=== PATIENT | female | born 1985 | race Caucasian/White ===

== ENCOUNTER 2018-11-01 10:29 | Outpatient (REF) | payer OTHER, SELFPAY ==
--- NOTE | 2018-11-01 09:30 | PAPFT_PTH ---
PATIENT: GRAHAM PASTOR LOC: [facility]NALI U#:[id number] AGE/SX: 33/F ROOM: RE11/01/[address]: Kimberley Torrez MD : [id number] BED: DIS: 11/01/2018 SPEC #: [id number] RECD: 11/01/18 13:11 STATUS: GISELE RELorraine #: [id number] SHA: 11/01/18 09:[address]: Kimberley Torrez DEPT: [facility] Cytology RECD BY: Michelle Medina ENTERED: 11/01/18 13:11 SP TYPE: PAPFT OTHR DR: Oleg Hoyos Tissues: 1 - CX/ENDOCX FOR PAP SMEARS Procedures: PAP THIN PREP/UVM Screening HPV DNA PROBE Comments: [id number]
== END 2018-11-01 10:49 ==
LOC: LBN 10:29
PROVIDERS: PCP Physician Assistant Medical; Visit Provider Obstetrics & Gynecology
DX: Z12.4 Encounter for screening for malignant neoplasm of cervix (principal); Z11.51 Encounter for screening for human papillomavirus (HPV)
CPT/HCPCS: 88142; 87624

== ENCOUNTER 2018-11-15 10:58 | Outpatient (CLI) | payer OTHER, SELFPAY ==
[2018-11-15 13:32] LABS: HCT 41.9 % (36.0-46.0); HGB 13.8 g/dL (12.0-15.5)
[2018-11-15 14:18] LABS: HCG Qual (Serum) Negative
== END 2018-11-15 11:18 ==
PROVIDERS: PCP Physician Assistant Medical; Visit Provider Obstetrics & Gynecology
DX: R10.2 Pelvic and perineal pain (principal); N80.0 Endometriosis of uterus; Z01.818 Encounter for other preprocedural examination
CPT/HCPCS: 86850; 86900; 86901; 84703; 85014; 85018

== ENCOUNTER 2018-11-20 14:09 | Observation (INO) | payer OTHER, SELFPAY ==
[2018-11-20] VITALS (17 sets, daily range): BP systolic 90–131; BP diastolic 54–84; PULSE 55–99; RESP 13–18; TEMP 36.2–37; O2SAT 95–100
[2018-11-20] MEDS: Lactated Ringers 1,000 ML 125 ML IV ×3 (09:56→16:24)
--- NOTE | 2018-11-20 10:04 | DSU.FORM ---
11/20/2018 0932 - PT BECAME SYNCOPAL AND PASSED OUT UPON THE INJECTION OF 1% LIDO USED TO START IV. IV START WAS HALTED, PT RECLINED, SURAJ FROM LAB PRESENT IN ROOM. HELP CALLED FOR, MARY CARMEN MCCABE RN, ANITRA KAPLAN CRNA, AND LUIS GRIDER RN IN ROOM. IV STARTED, #20 LEFT HAND, BY MARY CARMEN MCCABE RN. PT QUICKLY BECAME RESPONSIVE BUT DISORIENTED. PT REMAINED RECLINED COOL CLOTHS APPLIED, COOL AIR FROM BEAR HUGGER USED. VSS 130/75, 90, 100%RA, 20 RESPIRATIONS. AFTER ABOUT 2 MINUTES TIME, PT DID GAIN FULL CONSCIOUSNESS AND WAS ORIENTED, BUT CONTINUED TO FEEL FLUSH AND FAINT. 0936- PT CONTINUED TO BE RECLINED BUT BECAME NAUSEATED. 0939- PT VOMITED X 2 - CLEAR LIQUID APPROX 25MLS, PT PLACED IN SEATED POSITION IN THE RECLINER FOR SAFETY. VSS- 107/72, 96%RA, 93 PULSE, 20 RESP. 0949 - PT NAUSEA PASSING, PT REMAINS RECLINED WITH COOLING IN PLACE, STATES SHE STILL FEELS LIGHTHEADED , VIDHYA PRESENT IN ROOM AT THE REQUEST OF THE PT. 0955- ISABELLA VAIL INTO CHAT WITH PT. PLAN PER ANES, GIVE LITER OF FLUID THAT IS HAS BEEN STARTED, AND PRIOR TO SURGERY, GET PT UP TO GO TO BR, IF VSS LOOK GOOD AND PT FEELS OKAY, WILL PROCEED. 1007 - PT FEELING BETTER, STILL IN RECLINED POSITION WITH AT BEDSIDE. VSS 104/66, 85, 99% RA, 20 RESPS. WILL CONTINUE TO MONITOR.
[2018-11-20] MEDS: Bupivacaine 0.25% Pres-Free 30 ML VIAL (12:53)
--- NOTE | 2018-11-20 13:20 | LIV_PTH ---
PATIENT: GRAHAM PASTOR LOC: OBS U#:[id number] AGE/SX: 33/F ROOM: OBS.304 RE11/20/[address]: Kimberley Torrez MD : 1985 BED: A DIS: 11/21/2018 SPEC #: [id number] RECD: 11/20/18 18:06 STATUS: GISELE RELorraine #: [id number] SHA: 11/20/18 13:[address]: Kimberley Torrez DEPT: Surgical Specimen RECD BY: Michelle Medina ENTERED: 11/20/18 18:06 SP TYPE: ROSIE MÁRQUEZ DR: Oleg Hoyos Tissues: 1 - LIVER BIOPSY(NEEDLE/WEDGE) Procedures: GROSS AND MICRO LEVEL 5 Comments: [id number]
[2018-11-20] MEDS: Cellulose,Oxidized 4X8 1 PACKET MC (13:37)
[2018-11-20] MEDS: Normal Saline Flush 10 ML SYR IV ×4 (15:41→23:53)
--- NOTE | 2018-11-20 16:27 | W.PM.OP ---
Date of service: 11/20/18 Time of Service: 16:28 Operative Note DATE OF PROCEDURE: 11/20/18 PRE-OP DIAGNOSIS: Abnormal liver lesion POST-OP DIAGNOSIS: same PROCEDURE: Laparoscopic liver biopsy SURGEON: Fatoumata Chi ANESTHESIA: GETA ESTIMATED BLOOD LOSS: 5 PATHOLOGY: other TOURNIQUET TIME: 0 COMPLICATIONS: None Patient was transported to: PACU Patient's condition: stable Implants: n/a Indications: abnl lesion on liver segment IV Findings: awaiting path. GB/stomach/sm bowel appears nl. pancrease and CBD not visualized Procedure Description: dictated
[2018-11-20] MEDS: Acetaminophen 500 MG TAB PO (16:37)
--- NOTE | 2018-11-20 16:41 | W.SURGCON ---
Date of service: 11/20/18 Time of Service: 16:41 Assessment and Plan (1) Liver lesion, right lobe: Current visit: No Status: Chronic I d/w pt adn that she has had a liver Bx adn why that had taken place. I do think this is a benign lesion, but will await the reults of pathology. review postOp cares Pt is experiencing some pain in RUQ- I think this is more from residual pneumo and encouraged her to get up and walk, use ice, adjusted pain meds. Pt did have a vaso-vagal episode around 9pm while going to the bathroom. Her VS were stable. She does not exhibited any signs of bleeding. I think it is just a combination of meds and postOp status and does not represent internal bleeding. History of Present Illness Chief Complaint: abnl liver lesion Narrative: PT having diagnostic laparoscopy for chronic pelvic pain. Pt was found to have an abnl liver lesion that did not appear to be benign. IntraOp Bx was done. After reviewing her chart, I did find an old CT from 2014- I think this was the same lesion that we were looking at in Sx today. this does appear to be unchanged from the radiologists description and is mostly likely benign. Will hold off on any further lab work CT ABDOMEN AND PELVIS: No specific history is given. Images were performed from the lung bases through the ischial tuberosities after IV and oral contrast. The lung bases are clear. The liver shows a small area of decreased attenuation anteriorly near the falciform ligament as well as adjacent to the gallbladder which could represent focal fatty infiltration. The spleen, adrenals, pancreas and gallbladder appear normal. The kidneys also appear normal. There is no bowel dilatation or inflammatory change. The administered oral contrast is only seen in the distal small bowel and ascending colon. The appendix appears normal. There is a normal quantity of fecal material. The bladder, uterus and ovaries are unremarkable. There is no free air or free fluid. The aorta is normal in diameter. The spine is unremarkable. IMPRESSION: Areas of focal fat in the anterior liver, of doubtful clinical significance. No acute abnormality is seen. CC: Dictated By: FORREST TOLEDO M.D. 05/25/15 1100 <Electronically signed by FORREST TOLEDO M.D.> 05/25/15 1328 Transcribed By: Danelle Jang 05/25/15 1226 Consults Consult date: 11/20/18 Requesting physician: Kimberley Torrez Review of Systems Review of Systems I did see the pt post Op adn review her s/s. She has not had any problems w/ liver- per her descriptions. Her father just of cancer and his brother was recently Dg w/ cancer- type unspecified. 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 Unobtainable due to endotracheal tube and Unobtainable due to (pt seen intraOP ) [facility] Medical History Liver lesion, right lobe (Chronic) Surgical History Diagnostic Laproscopy (~2002) Ligation of fallopian tube (~2007) Family History Mother Diabetes Personal history of malignant neoplasm aunt Heart disease uncle Heart disease Social History Smoking/Tobacco Use Status: Former Tobacco Use Tobacco: How many years used: 20 Drug use: Never Counseling given: No Counseling provided: none Household members: spouse and other Details: H-Waylon Female Reproductive History Menstrual Age of Menarche: 11 control method: permanent sterilization (Pt also take bith control pills) History History 3 Para 2 Hx # Term Pregnancies Multiple births Hx # Pregnancies Ectopic pregnancies AB induced Hx Number of Living Children AB spontaneous 1 Exam Narrative Exam Narrative: pt seen intraOp. 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
[2018-11-20] MEDS: Ketorolac 30 MG/ML VIAL IVP ×2 (18:14→23:53)
[2018-11-20 19:02] LABS: HCT 38.5 % (36.0-46.0); HGB 12.7 g/dL (12.0-15.5); Mean Corpuscular Hemoglobin 28.7 pg (27.0-33.0); Mean Corpuscular Volume 87.1 fL (80-95); Mean Platelet Volume 11.2 fL (8.0-11.0); Platelet Count 177 x1000/uL (130-400); RBC 4.42 m/cumm (4.00-5.20); RBC Distribution Width 12.6 % (11.7-14.6); White Blood Cell Count 8.13 k/cumm (4.4-10.8)
[2018-11-20] MEDS: CLINDAMYCIN 600 MG/50 ML BAG 100 MG IVPB (20:34)
[2018-11-20] MEDS: traMADol 50 MG TAB PO (20:41)
[2018-11-20] MEDS: Ondansetron 4 MG/2 ML VIAL IVP ×2 (20:54→23:58)
--- NOTE | 2018-11-20 22:27 | W.PM.PROGNOT ---
Date of Service Date of service: 11/20/18 Time of Service: 17:00 Assessment and Plan (1) Liver lesion, right lobe: Current visit: Yes Status: Acute Pt was found to abnl liver lesion in segment IV during Dg laparoscopy for chronic pelvic pain. Bx were done. I did d/w pt and SO findings at the time of surgery. I did find a CT that she had had in 2015- which does show that the lesion was present in 2015, roughly same size and same area. I think this is the lesion- which point to a benign lesion. awaiting bx results. Continue psotOp care walk local wound care pulm toilet will follow Subjective Patient reports: still having pain, nausea and vomiting Interval history since last seen: pt doing ok post OP. c/o pain under R ribs. SShe feels gasey adn bloated. no fever and Chills. VSS are stable. pain is localized to RUQ. Exam Narrative Exam Narrative: HEENT: no eye pain or redness mild sore throat no dental damage cardio: NSR L: CTA b/l A: incision C/D/I. appropriate pain Objective Objective Clinical Data: Abnormal lab results 11/20/18 Range/Units 18:50 MPV 11.2 H (8.0-11.0) fL Vital Signs Temperature 36.8 C 11/20/18 21:47 Temperature Source Oral 11/20/18 21:47 Pulse 84 11/20/18 21:47 Pulse Rhythm Regular 11/20/18 15:35 Respiratory Rate 16 11/20/18 21:47 Respiratory Effort 11/20/18 15:35 Respiratory Depth Normal 11/20/18 15:35 Respiratory Pattern Normal 11/20/18 15:35 Blood Pressure 122/73 11/20/18 21:47 Pulse Oximetry 98 11/20/18 21:47 Respiratory End-tidal CO2 38 11/20/18 14:44 Oxygen Delivery Method Room Air 11/20/18 21:47 Oxygen Flow Rate 0 11/20/18 21:47 Pain Level 6 11/20/18 21:47 Comment 11/20/18 15:30 Intake & Output 11/19/18 11/20/18 11/20/18 23:59 11:59 23:59 Intake Total 1000 / 2125.417 1125.417 / 2125.417 Output Total 875 / 875 Balance 1000 / 1250.417 250.417 / 1250.417 Weight 60.1 kg Intake: IV 1000 / 5.417 885.417 / 1885.417 Oral 240 / 240 Output: Urine 675 / 675 Emesis 200 / 200 Other: Urine Color Yellow Urine Appearance Clear Emesis Description None Voiding Methods Toilet Laboratory Results WBC 8.13 k/cumm (4.4-10.8) 11/20/18 18:50 RBC 4.42 m/cumm (4.00-5.20) 11/20/18 18:50 Hgb 12.7 g/dL (12.0-15.5) 11/20/18 18:50 Hct 38.5 % (36.0-46.0) 11/20/18 18:50 MCV 87.1 fL (80-95) 11/20/18 18:50 MCH 28.7 pg (27.0-33.0) 11/20/18 18:50 MCHC 33.0 g/dL (32.0-36.0) 11/20/18 18:50 RDW 12.6 % (11.7-14.6) 11/20/18 18:50 Plt Count 177 x1000/uL (130-400) 11/20/18 18:50 MPV 11.2 fL (8.0-11.0) H 11/20/18 18:50 Patient ABO/Rh O Positive 11/20/18 09:34 Antibody Screen Negative 11/20/18:34
[2018-11-21 00:56] VITALS: BP 138/76; PULSE 96; RESP 20; TEMP 36.7; O2SAT 98
[2018-11-21] MEDS: CLINDAMYCIN 600 MG/50 ML BAG 100 MG IVPB ×2 (02:12→08:09)
[2018-11-21] MEDS: Lactated Ringers 1,000 ML 125 ML IV ×2 (02:20→11:28)
[2018-11-21 05:05] VITALS: BP 137/81; PULSE 68; RESP 18; TEMP 37; O2SAT 95
[2018-11-21] MEDS: Normal Saline Flush 10 ML SYR IV ×2 (05:40→13:29)
[2018-11-21] MEDS: Ondansetron 4 MG/2 ML VIAL IVP (05:40)
[2018-11-21] MEDS: Ketorolac 30 MG/ML VIAL IVP ×2 (06:31→13:28)
--- NOTE | 2018-11-21 07:09 | W.PM.PROGNOT ---
Date of Service Date of service: 11/21/18 Time of Service: 07:09 Assessment and Plan (1) H/O laparoscopy: Current visit: Yes Status: Acute pain after surgery remains. will change pain med and give rectal suppository. check labs later this am. Subjective Patient reports: still having pain (periumbilical. gas won't come out.) and no flatus Interval history since last seen: Awake all night. Nausea with Tramadol, refused med. No flatus, feeling bloated as if she has gas I can't get out. Reluctant to ambulate secondary to pain. No response to Ondansetron. Exam Const General: in distress (ambulatory in room, rubbing abdomen.) Nutritional Appearance: average body habitus Orientation: alert, awake and oriented x3 Resp Effort & Inspection: normal respiratory effort GI Inspection: distended (none) Palpation: soft Percussion: normal to percussion Other: Incisions clean dry and intact. No pain over RUQ but all pain is localized to periumbilical region. General: deferred Skin General skin exam: no rashes or lesions noted Lesions: lesion noted ( julio césar on RUQ) Neuro Cognition: normal cognition Speech: speech normal Gait: normal gait Motor: muscle tone normal throughout Sensory Exam: no sensory deficits noted Objective Objective Clinical Data: Abnormal lab results 11/20/18 Range/Units 18:50 MPV 11.2 H (8.0-11.0) fL Vital Signs Temperature 98.6 F 11/21/18 05:05 Temperature Source Tympanic 11/21/18 05:05 Pulse 68 11/21/18 05:05 Pulse Rhythm Regular 11/21/18 00:56 Respiratory Rate 18 11/21/18 05:05 Respiratory Effort 11/21/18 00:56 Respiratory Depth Normal 11/21/18 00:56 Respiratory Pattern Normal 11/21/18 00:56 Blood Pressure 137/81 11/21/18 05:05 Pulse Oximetry 95 11/21/18 05:05 Respiratory End-tidal CO2 38 11/20/18 14:44 Oxygen Delivery Method Room Air 11/21/18 05:05 Oxygen Flow Rate 0 11/21/18 05:05 Pain Level 4 11/21/18 06:31 Comment 11/20/18 15:30 Intake & Output 11/20/18 11/20/18 11/21/18 11:59 23:59 11:59 Intake Total 1000 / 2175.417 1175.417 / 2175.417 2986 / 2986 Output Total 875 / 875 450 / 450 Balance 1000 / 1300.417 300.417 / 4529.791 4543 / 2536 Weight 132 lb 7.965 oz Intake: IV 1000 / 1935.417 935.417 / 4397.543 3086 / 2746 Oral 240 / 240 240 / 240 Output: Urine 675 / 675 450 / 450 Emesis 200 / 200 Other: Urine Color Yellow Yellow Urine Appearance Clear Clear Urine Odor None Emesis Description None Voiding Methods Toilet Toilet Laboratory Results WBC 8.13 k/cumm (4.4-10.8) 11/20/18 18:50 RBC 4.42 m/cumm (4.00-5.20) 11/20/18 18:50 Hgb 12.7 g/dL (12.0-15.5) 11/20/18 18:50 Hct 38.5 % (36.0-46.0) 11/20/18 18:50 MCV 87.1 fL (80-95) 11/20/18 18:50 MCH 28.7 pg (27.0-33.0) 11/20/18 18:50 MCHC 33.0 g/dL (32.0-36.0) 11/20/18 18:50 RDW 12.6 % (11.7-14.6) 11/20/18 18:50 Plt Count 177 x1000/uL (130-400) 11/20/18 18:50 MPV 11.2 fL (8.0-11.0) H 11/20/18 18:50 Patient ABO/Rh O Positive 11/20/18 09:34 Antibody Screen Negative 11/20/18 09:34
[2018-11-21 07:11] LABS: HCT 36.3 % (36.0-46.0); HGB 12.3 g/dL (12.0-15.5)
--- NOTE | 2018-11-21 07:18 | PGE_ITS ---
Date of Service Date of service: 11/21/18 Time of Service: 07:09 Assessment and Plan (1) H/O laparoscopy: Current visit: Yes Status: Acute pain after surgery remains. will change pain med and give rectal suppository. check labs later this am. Subjective Patient reports: still having pain (periumbilical. gas won't come out.) and no flatus Interval history since last seen: Awake all night. Nausea with Tramadol, refused med. No flatus, feeling bloated as if she has gas I can't get out. Reluctant to ambulate secondary to pain. No response to Ondansetron. Exam Const General: in distress (ambulatory in room, rubbing abdomen.) Nutritional Appearance: average body habitus Orientation: alert, awake and oriented x3 Resp Effort & Inspection: normal respiratory effort GI Inspection: distended (none) Palpation: soft Percussion: normal to percussion Other: Incisions clean dry and intact. No pain over RUQ but all pain is localized to periumbilical region. General: deferred Skin General skin exam: no rashes or lesions noted Lesions: lesion noted ( julio césar on RUQ) Neuro Cognition: normal cognition Speech: speech normal Gait: normal gait Motor: muscle tone normal throughout Sensory Exam: no sensory deficits noted Objective Objective Clinical Data: Abnormal lab results 11/20/18 Range/Units 18:50 MPV 11.2 H (8.0-11.0) fL Vital Signs Temperature 98.6 F 11/21/18 05:05 Temperature Source Tympanic 11/21/18 05:05 Pulse 68 11/21/18 05:05 Pulse Rhythm Regular 11/21/18 00:56 Respiratory Rate 18 11/21/18 05:05 Respiratory Effort 11/21/18 00:56 Respiratory Depth Normal 11/21/18 00:56 Respiratory Pattern Normal 11/21/18 00:56 Blood Pressure 137/81 11/21/18 05:05 Pulse Oximetry 95 11/21/18 05:05 Respiratory End-tidal CO2 38 11/20/18 14:44 Oxygen Delivery Method Room Air 11/21/18 05:05 Oxygen Flow Rate 0 11/21/18 05:05 Pain Level 4 11/21/18 06:31 Comment 11/20/18 15:30 Intake & Output 11/20/18 11/20/18 11/21/18 11:59 23:59 11:59 Intake Total 1000 / 2175.417 1175.417 / 2175.417 2986 / 2986 Output Total 875 / 875 450 / 450 Balance 1000 / 1300.417 300.417 / 1937.927 5212 / 2536 Weight 132 lb 7.965 oz Intake: IV 1000 / 1935.417 935.417 / 5357.118 6120 / 2746 Oral 240 / 240 240 / 240 Output: Urine 675 / 675 450 / 450 Emesis 200 / 200 Other: Urine Color Yellow Yellow Urine Appearance Clear Clear Urine Odor None Emesis Description None Voiding Methods Toilet Toilet Laboratory Results WBC 8.13 k/cumm (4.4-10.8) 11/20/18 18:50 RBC 4.42 m/cumm (4.00-5.20) 11/20/18 18:50 Hgb 12.7 g/dL (12.0-15.5) 11/20/18 18:50 Hct 38.5 % (36.0-46.0) 11/20/18 18:50 MCV 87.1 fL (80-95) 11/20/18 18:50 MCH 28.7 pg (27.0-33.0) 11/20/18 18:50 MCHC 33.0 g/dL (32.0-36.0) 11/20/18 18:50 RDW 12.6 % (11.7-14.6) 11/20/18 18:50 Plt Count 177 x1000/uL (130-400) 11/20/18 18:50 MPV 11.2 fL (8.0-11.0) H 11/20/18 18:50 Patient ABO/Rh O Positive 11/20/18 09:34 Antibody Screen Negative 11/20/18 09:34
[2018-11-21 07:35] LABS: ALT 31 U/L (12-78); AST 26 U/L (15-37); Albumin 3.3 g/dL (3.4-5.0); Alkaline Phosphatase 89 U/L (46-116); Bilirubin, Direct 0.26 mg/dL (0.00-0.20); Bilirubin, Total 0.6 mg/dL (0.2-1.0); Total Protein 6.9 g/dL (6.4-8.2)
[2018-11-21 08:25] VITALS: BP 126/74; PULSE 63; TEMP 36.8
--- NOTE | 2018-11-21 08:56 | W.PM.PROGNOT ---
Date of Service Date of service: 11/21/18 Time of Service: 08:56 Assessment and Plan (1) Liver lesion, right lobe: Current visit: No Status: Chronic liver lesion present on CT [id number]- most likely benign does not need to go home on abx f/u w/ Dr. Torrez for Bx results stable for d/c when tolerating po's sensitive to narcotics- cause N/V dose of MOM for constipation routine post Op care Subjective Patient reports: feels better, pain is less, tolerating liquids well, voiding w/o difficulty, flatus and afebrile; denies nausea, vomiting and shortness of breath Interval history since last seen: pt doing better today. Had some residual pneumo from sx last pm adn did not feel well. Today she is up moving better adn tolerating clears. I did d/w pt and her the findings during sx and the bx that ws done. I do feel most likely that this is a benign lesion since it was present on CT in 2014. Exam Const General: cooperative, healthy appearing, comfortable, no acute distress, well developed and well groomed Nutritional Appearance: average body habitus and well nourished Orientation: alert, awake and oriented x3 HENMT Head: normal to inspection, normocephalic and atraumatic Ears: hearing grossly normal bilaterally and external ears normal General nose exam: external nose normal Face and sinus: normal facial exam and sinuses nontender Mouth: oral mucosae normal, lip normal, tongue normal and moist mucous membranes Teeth and gingiva: dentition normal Eyes General: appearance normal, both eyes and all related structures Conjunctivae: conjunctivae normal Sclera: sclerae normal Pupils: PERRL Neck Neck: normal visual inspection and full ROM Chest Chest: normal inspection of the chest Resp Effort & Inspection: normal respiratory effort, able to speak in complete sentences, no cough, no nasal flaring, not tachypneic and no use of accessory muscles Auscultation: clear to auscultation bilaterally, no rales, no rhonchi and no wheezes Cardio Jugular venous pressure: no JVD Rate: regular rate Rhythm: regular rhythm GI Inspection: normal to inspection, no edema and non-distended Palpation: soft, no masses, nontender and No ascites Auscultation: normal bowel sounds Other: min pain at incision sites. C/D/I. no signs of bile leak. Skin General skin exam: no rashes or lesions noted Trauma: no lacerations or abrasions Other: mult tattoos Neuro General: alert, oriented x3, oriented, gait normal, moves all extremities, no focal motor deficits and CN's II-XI intact bilaterally Cognition: normal cognition Speech: speech normal Gait: normal gait Motor: muscle tone normal throughout Extrem General: normal to inspection, full ROM and no clubbing, cyanosis or edema Psych Appearance: grossly normal and well kempt Mental Status: mental status grossly normal Speech and Movement: speech and movement normal Affect: normal affect Objective Objective Clinical Data: Abnormal lab results 11/20/18 11/21/18 Range/Units 18:50 06:55 MPV 11.2 H (8.0-11.0) fL Conjugated Bilirubin 0.26 H (0.00-0.20) mg/dL Albumin 3.3 L (3.4-5.0) g/dL Vital Signs Temperature 36.8 C 11/21/18 08:25 Temperature Source Oral 11/21/18 08:25 Pulse 63 11/21/18 08:25 Pulse Rhythm Regular 11/21/18 08:25 Respiratory Rate 18 11/21/18 05:05 Respiratory Effort 11/21/18 08:25 Respiratory Depth Normal 11/21/18 08:25 Respiratory Pattern Normal 11/21/18 08:25 Blood Pressure 126/74 11/21/18 08:25 Pulse Oximetry 95 11/21/18 05:05 Respiratory End-tidal CO2 38 11/20/18 14:44 Oxygen Delivery Method Room Air 11/21/18 08:25 Oxygen Flow Rate 0 11/21/18 08:25 Pain Level 4 11/21/18 06:31 Comment 11/20/18 15:30 Intake & Output 11/20/18 11/20/18 11/21/18 11:59 23:59 11:59 Intake Total 1000 / 2175.417 1175.417 / 2175.417 3036 / 3036 Output Total 875 / 875 450 / 450 Balance 1000 / 1300.417 300.417 / 7530.366 1362 / 2586 Weight 60.1 kg Intake: IV 1000 / 5.417 935.417 / 3213.442 6420 / 2796 Oral 240 / 240 240 / 240 Output: Urine 675 / 675 450 / 450 Emesis 200 / 200 Other: Urine Color Yellow Yellow Urine Appearance Clear Clear Urine Odor None Emesis Description None None Voiding Methods Toilet Toilet Laboratory Results WBC 8.13 k/cumm (4.4-10.8) 11/20/18 18:50 RBC 4.42 m/cumm (4.00-5.20) 11/20/18 18:50 Hgb 12.3 g/dL (12.0-15.5) 11/21/18 06:55 Hct 36.3 % (36.0-46.0) 11/21/18 06:55 MCV 87.1 fL (80-95) 11/20/18 18:50 MCH 28.7 pg (27.0-33.0) 11/20/18 18:50 MCHC 33.0 g/dL (32.0-36.0) 11/20/18 18:50 RDW 12.6 % (11.7-14.6) 11/20/18 18:50 Plt Count 177 x1000/uL (130-400) 11/20/18 18:50 MPV 11.2 fL (8.0-11.0) H 11/20/18 18:50 Total Bilirubin 0.6 mg/dL (0.2-1.0) 11/21/18 06:55 Conjugated Bilirubin 0.26 mg/dL (0.00-0.20) H 11/21/18 06:55 AST 26 U/L (15-37) 11/21/18 06:55 ALT 31 U/L (12-78) 11/21/18 06:55 Alkaline Phosphatase 89 U/L (46-116) 11/21/18 06:55 Total Protein 6.9 g/dL (6.4-8.2) 11/21/18 06:55 Albumin 3.3 g/dL (3.4-5.0) L 11/21/18 06:55 Patient ABO/Rh O Positive 11/20/18 09:34 Antibody Screen Negative 11/20/18 09:34
[2018-11-21] MEDS: Promethazine 25 MG SUPP 12.5 MG PR (10:00)
[2018-11-21] MEDS: HYDROmorphone 2 MG TAB PO (10:26)
--- NOTE | 2018-11-21 11:49 | W.PM.DS.N ---
Date of service: 11/21/18 Time of Service: 11:49 DS: Diagnosis Discharge Diagnosis (1) Liver lesion, right lobe: Status: Chronic (2) H/O laparoscopy: Status: Acute (3) Dyspareunia: Status: Chronic Discharge Plan Disposition Patient Disposition: HOME Condition: Fair Discharge Details Reason For Visit: DIAGNOSTIC LAPAROSCOPY LIVER MASS BIOPSY Admit Date/Time: 11/20/18 14:09 Admit Provider: Kimberley Torrez Attending Provider: Kimberley Torrez Primary Care Provider: Oleg Hoyos Hospital Course Hospital Course: Patient underwent the above-stated procedure on 11/20/2018. Her initial diagnosis is dyspareunia possible endometriosis finding at the time of surgery to unremarkable for endometriosis however she was noted to have a lesion of the right lobe of her liver a general surgery consult was performed and a liver biopsy was obtained. There is also currently pending. However follow-up from the patient's previous diagnostic imaging study showed similar liver lesion present in 2014. There is no evidence of appreciable change in size. Patient was informed of the presence of the liver mass and will follow up with general surgery in approximately a week. She was admitted for observation overnight and was discharged home on postop day #1 tolerating p.o.'s taking Dilaudid for pain. She experienced tenderness at the umbilical site and no right upper quadrant discomfort. She will follow-up with Dr. Torrez in approximately 2 weeks after her surgery. Home Meds and New Rx's Prescriptions: No Action Lupron Depot 3.75 mg syringe kit 3.75 mg IM QMONTH Qty: 1 RF: 0 Lupron Depot 3.75 mg syringe kit 3.75 mg IM QMONTH Qty: 1 RF: 0 polyethylene glycol 3350 [Miralax] 17 GM powder in packet 17 gm PO DAILY PRNQty: 510 RF: 3 norethindrone ac-eth estradiol [Microgestin 09/29 ()] 1 EACH tablet 1 ea PO DAILY Qty: 3 RF: 6 ibuprofen 800 MG tablet 800 mg PO PRN PRNRF: 0 Discharge Instructions Additional Instructions: Patient was requested not to work for approximately 5 days. She is given instructions regarding weight limit at work. She will follow-up with general surgery in [address] Torrez in 2 weeks. Dilaudid 2 mg every 4 hours as needed for pain along with ibuprofen. Patient is aware that the liver mass was present 2015 is not changed in appearance. She knows that the pathology is currently pending. Stand Alone Forms: Dr. Choi's Laparoscopy Activity:: Activity as Tolerated Equipment/Supplies:: No Equipment Needed Diet:: As Tolerated Discharge Orders Discharge Orders: Discharge Order (Routine); Ordered 11/21/18 Ordered By: Edith Peralta DS: Summary Status at Discharge Cognitive/behavioral status at discharge: Stable Exam Const General: no acute distress (Patient reports that her discomfort level has improved since she was given ) Nutritional Appearance: average body habitus Orientation: alert, awake and oriented x3 Resp Effort & Inspection: normal respiratory effort Auscultation: clear to auscultation bilaterally Cardio Palpation: normal PMI Rhythm: regular rhythm Heart Sounds: S1 normal and S2 normal GI Palpation: soft and no hepatosplenomegaly (Discomfort at the umbilical port site otherwise no tenderness at 5 mm port ) Other: No ecchymosis erythema incisions are well approximated Skin General skin exam: no rashes or lesions noted Extrem General: normal to inspection, full ROM and normal capillary refill DS: Data Vitals/I&O Vitals and I&O: Vital Signs Temperature 98.2 F 11/21/18 08:25 Temperature Source Oral 11/21/18 08:25 Pulse 63 11/21/18 08:25 Pulse Rhythm Regular 11/21/18 08:25 Respiratory Rate 18 11/21/18 05:05 Respiratory Effort 11/21/18 08:25 Respiratory Depth Normal 11/21/18 08:25 Respiratory Pattern Normal 11/21/18 08:25 Blood Pressure 126/74 11/21/18 08:25 Pulse Oximetry 95 11/21/18 05:05 Respiratory End-tidal CO2 38 11/20/18 14:44 Oxygen Delivery Method Room Air 11/21/18 08:25 Oxygen Flow Rate 0 11/21/18 08:25 Pain Level 3 11/21/18 11:24 Comment 11/20/18 15:30 Intake & Output 11/20/18 11/20/18 11/21/18 11:59 23:59 11:59 Intake Total 1000 / 2175.417 1175.417 / 2175.417 4086 / 4086 Output Total 875 / 875 450 / 450 Balance 1000 / 1300.417 300.417 / 2216.044 7613 / 3636 Weight 132 lb 7.965 oz Intake: IV 1000 / 5.417 935.417 / 6737.406 4324 / 3846 Oral 240 / 240 240 / 240 Output: Urine 675 / 675 450 / 450 Emesis 200 / 200 Other: Urine Color Yellow Yellow Urine Appearance Clear Clear Urine Odor None Emesis Description None None Voiding Methods Toilet Toilet Labs on day of discharge: Labs from last 24 hours 11/21/18 11/21/18 11/20/18 06:55 06:55 18:50 WBC 8.13 RBC 4.42 Hgb 12.3 12.7 Hct 36.3 38.5 MCV 87.1 MCH 28.7 MCHC 33.0 RDW 12.6 Plt Count 177 MPV 11.2 H Total Bilirubin 0.6 Conjugated Bilirubin 0.26 H AST 26 ALT 31 Alkaline Phosphatase 89 Total Protein 6.9 Albumin 3.3 L PFSH Medical History Liver lesion, right lobe (Chronic) Surgical History Diagnostic Laproscopy (~2002) Ligation of fallopian tube (~2007) Family History Mother Diabetes Personal history of malignant neoplasm aunt Heart disease uncle Heart disease Social History Smoking/Tobacco Use Status: Former Tobacco Use Tobacco: How many years used: 20 Drug use: Never Counseling given: No Counseling provided: none Household members: spouse and other Details: VazquezEstivenWaylon Female Reproductive History Menstrual Age of Menarche: 11 control method: permanent sterilization (Pt also take bith control pills) History History 3 Para 2 Hx # Term Pregnancies Multiple births Hx # Pregnancies Ectopic pregnancies AB induced Hx Number of Living Children AB spontaneous 1
--- NOTE | 2018-11-21 12:01 | DSE_ITS ---
Date of service: 11/21/18 Time of Service: 11:49 DS: Diagnosis Discharge Diagnosis (1) Liver lesion, right lobe: Status: Chronic (2) H/O laparoscopy: Status: Acute (3) Dyspareunia: Status: Chronic Discharge Plan Disposition Patient Disposition: HOME Condition: Fair Discharge Details Reason For Visit: DIAGNOSTIC LAPAROSCOPY LIVER MASS BIOPSY Admit Date/Time: 11/20/18 14:09 Admit Provider: Kimberley Torrez Attending Provider: Kimberley Torrez Primary Care Provider: Oleg Hoyos Hospital Course Hospital Course: Patient underwent the above-stated procedure on 11/20/2018. Her initial diagnosis is dyspareunia possible endometriosis finding at the time of surgery to unremarkable for endometriosis however she was noted to have a lesion of the right lobe of her liver a general surgery consult was performed and a liver biopsy was obtained. There is also currently pending. However follow-up from the patient's previous diagnostic imaging study showed similar liver lesion present in 2014. There is no evidence of appreciable change in size. Patient w as informed of the presence of the liver mass and will follow up with general surgery in approximately a week. She was admitted for observation overnight and was discharged home on postop day #1 tolerating p.o.'s taking Dilaudid for pain. She experienced tenderness at the umbilical site and no right upper quadrant discomfort. She will follow-up with Dr. Torrez in approximately 2 weeks after her surgery. Home Meds and New Rx's Prescriptions: No Action Lupron Depot 3.75 mg syringe kit 3.75 mg IM QMONTH Qty: 1 RF: 0 Lupron Depot 3.75 mg syringe kit 3.75 mg IM QMONTH Qty: 1 RF: 0 polyethylene glycol 3350 [Miralax] 17 GM powder in packet 17 gm PO DAILY PRNQty: 510 RF: 3 norethindrone ac-eth estradiol [Microgestin 09/29 ()] 1 EACH tablet 1 ea PO DAILY Qty: 3 RF: 6 ibuprofen 800 MG tablet 800 mg PO PRN PRNRF: 0 Discharge Instructions Additional Instructions: Patient was requested not to work for approximately 5 days. She is given instructions regarding weight limit at work. She will follow-up with general surgery in [address] Torrez in 2 weeks. Dilaudid 2 mg every 4 hours as needed for pain along with ibuprofen. Patient is aware that the liver mass was present 2015 is not changed in appearance. She knows that the pathology is currently pending. Stand Alone Forms: Dr. Choi's Laparoscopy Activity:: Activity as Tolerated Equipment/Supplies:: No Equipment Needed Diet:: As Tolerated Discharge Orders Discharge Orders: Discharge Order (Routine); Ordered 11/21/18 Ordered By: Edith Peralta DS: Summary Status at Discharge Cognitive/behavioral status at discharge: Stable Exam Const General: no acute distress (Patient reports that her discomfort level has improved since she was given ) Nutritional Appearance: average body habitus Orientation: alert, awake and oriented x3 Resp Effort & Inspection: normal respiratory effort Auscultation: clear to auscultation bilaterally Cardio Palpation: normal PMI Rhythm: regular rhythm Heart Sounds: S1 normal and S2 normal GI Palpation: soft and no hepatosplenomegaly (Discomfort at the umbilical port site otherwise no tenderness at 5 mm port ) Other: No ecchymosis erythema incisions are well approximated Skin General skin exam: no rashes or lesions noted Extrem General: normal to inspection, full ROM and normal capillary refill DS: Data Vitals/I&O Vitals and I&O: Vital Signs Temperature 98.2 F 11/21/18 08:25 Temperature Source Oral 11/21/18 08:25 Pulse 63 11/21/18 08:25 Pulse Rhythm Regular 11/21/18 08:25 Respiratory Rate 18 11/21/18 05:05 Respiratory Effort 11/21/18 08:25 Respiratory Depth Normal 11/21/18 08:25 Respiratory Pattern Normal 11/21/18 08:25 Blood Pressure 126/74 11/21/18 08:25 Pulse Oximetry 95 11/21/18 05:05 Respiratory End-tidal CO2 38 11/20/18 14:44 Oxygen Delivery Method Room Air 11/21/18 08:25 Oxygen Flow Rate 0 11/21/18 08:25 Pain Level 3 11/21/18 11:24 Comment 11/20/18 15:30 Intake & Output 11/20/18 11/20/18 11/21/18 11:59 23:59 11:59 Intake Total 1000 / 2175.417 1175.417 / 2175.417 4086 / 4086 Output Total 875 / 875 450 / 450 Balance 1000 / 1300.417 300.417 / 8352.950 3899 / 3636 Weight 132 lb 7.965 oz Intake: IV 1000 / 5.417 935.417 / 9486.083 2725 / 3846 Oral 240 / 240 240 / 240 Output: Urine 675 / 675 450 / 450 Emesis 200 / 200 Other: Urine Color Yellow Yellow Urine Appearance Clear Clear Urine Odor None Emesis Description None None Voiding Methods Toilet Toilet Labs on day of discharge: Labs from last 24 hours 11/21/18 11/21/18 11/20/18 06:55 06:55 18:50 WBC 8.13 RBC 4.42 Hgb 12.3 12.7 Hct 36.3 38.5 MCV 87.1 MCH 28.7 MCHC 33.0 RDW 12.6 Plt Count 177 MPV 11.2 H Total Bilirubin 0.6 Conjugated Bilirubin 0.26 H AST 26 ALT 31 Alkaline Phosphatase 89 Total Protein 6.9 Albumin 3.3 L PFSH Medical History Liver lesion, right lobe (Chronic) Surgical History Diagnostic Laproscopy (~2002) Ligation of fallopian tube (~2007) Family History Mother Diabetes Personal history of malignant neoplasm aunt Heart disease uncle Heart disease Social History Smoking/Tobacco Use Status: Former Tobacco Use Tobacco: How many years used: 20 Drug use: Never Counseling given: No Counseling provided: none Household members: spouse and other Details: AdrianaWaylon Female Reproductive History Menstrual Age of Menarche: 11 control method: permanent sterilization (Pt also take bith control pills) History History 3 Para 2 Hx # Term Pregnancies Multiple births Hx # Pregnancies Ectopic pregnancies AB induced Hx Number of Living Children AB spontaneous 1
--- NOTE | 2018-11-21 12:02 | DSE_ITS ---
DS: Diagnosis Discharge Diagnosis (1) Liver lesion, right lobe: Status: Chronic (2) H/O laparoscopy: Status: Acute (3) Dyspareunia: Status: Chronic Discharge Plan Disposition Patient Disposition: HOME Condition: Fair Discharge Details Reason For Visit: DIAGNOSTIC LAPAROSCOPY LIVER MASS BIOPSY Admit Date/Time: 11/20/18 14:09 Admit Provider: Kimberley Torrez Attending Provider: Kimberley Torrez Primary Care Provider: Oleg Hoyos Hospital Course Hospital Course: Patient underwent the above-stated procedure on 11/20/2018. Her initial diagnosis is dyspareunia possible endometriosis finding at the time of surgery to unremarkable for endometriosis however she was noted to have a lesion of the right lobe of her liver a general surgery consult was performed and a liver biopsy was obtained. There is also currently pending. However follow-up from the patient's previous diagnostic imaging study showed similar liver lesion present in 2014. There is no evidence of appreciable change in size. Patient was informed of the presence of the liver mass and will follow up with general surgery in approximately a week. She was admitted for observation overnight and was discharged home on postop day #1 tolerating p.o.'s taking Dilaudid for pain. She experienced tenderness at the umbilical site and no right upper quadrant discomfort. She will follow-up with Dr. Torrez in approximately 2 weeks after her surgery. Home Meds and New Rx's Prescriptions: No Action Lupron Depot 3.75 mg syringe kit 3.75 mg IM QMONTH Qty: 1 RF: 0 Lupron Depot 3.75 mg syringe kit 3.75 mg IM QMONTH Qty: 1 RF: 0 polyethylene glycol 3350 [Miralax] 17 GM powder in packet 17 gm PO DAILY PRNQty: 510 RF: 3 norethindrone ac-eth estradiol [Microgestin 09/29 (21)] 1 EACH tablet 1 ea PO DAILY Qty: 3 RF: 6 ibuprofen 800 MG tablet 800 mg PO PRN PRNRF: 0 Discharge Instructions Additional Instructions: Patient was requested not to work for approximately 5 days. She is given instructions regarding weight limit at work. She will follow-up with general surgery in [address] Torrez in 2 weeks. Dilaudid 2 mg every 4 hours as needed for pain along with ibuprofen. Patient is aware that the liver mass was present 2015 is not changed in appearance. She knows that the pathology is currently pending. Stand Alone Forms: Dr. Choi's Laparoscopy Activity:: Activity as Tolerated Equipment/Supplies:: No Equipment Needed Diet:: As Tolerated Discharge Orders Discharge Orders: Discharge Order (Routine); Ordered 11/21/18 Ordered By: Edith Peralta DS: Data Vitals/I&O Vitals and I&O: Vital Signs Temperature 98.2 F 11/21/18 08:25 Temperature Source Oral 11/21/18 08:25 Pulse 63 11/21/18 08:25 Pulse Rhythm Regular 11/21/18 08:25 Respiratory Rate 18 11/21/18 05:05 Respiratory Effort 11/21/18 08:25 Respiratory Depth Normal 11/21/18 08:25 Respiratory Pattern Normal 11/21/18 08:25 Blood Pressure 126/74 11/21/18 08:25 Pulse Oximetry 95 11/21/18 05:05 Respiratory End-tidal CO2 38 11/20/18 14:44 Oxygen Delivery Method Room Air 11/21/18 08:25 Oxygen Flow Rate 0 11/21/18 08:25 Pain Level 3 11/21/18 11:24 Comment 11/20/18 15:30 Intake & Output 11/20/18 11/21/18 11/21/18 23:59 11:59 23:59 Intake Total 1175.417 / 2175.417 4086 / 4086 Output Total 875 / 875 450 / 450 Balance 300.417 / 8718.953 1419 / 3636 Intake: IV 935.417 / 2505.736 2362 / 3846 Oral 240 / 240 240 / 240 Output: Urine 675 / 675 450 / 450 Emesis 200 / 200 Other: Urine Color Yellow Yellow Urine Appearance Clear Clear Urine Odor None Emesis Description None None Voiding Methods Toilet Toilet Labs on day of discharge: Labs from last 24 hours 11/21/18 11/21/18 11/20/18 06:55 06:55 18:50 WBC 8.13 RBC 4.42 Hgb 12.3 12.7 Hct 36.3 38.5 MCV 87.1 MCH 28.7 MCHC 33.0 RDW 12.6 Plt Count 177 MPV 11.2 H Total Bilirubin 0.6 Conjugated Bilirubin 0.26 H AST 26 ALT 31 Alkaline Phosphatase 89 Total Protein 6.9 Albumin 3.3 L [facility] History Liver lesion, right lobe (Chronic) Surgical History Diagnostic Laproscopy (~2002) Ligation of fallopian tube (~2007) Family History Mother Diabetes Personal history of malignant neoplasm aunt Heart disease uncle Heart disease Social History Smoking/Tobacco Use Status: Former Tobacco Use Tobacco: How many years used: 20 Drug use: Never Counseling given: No Counseling provided: none Household members: spouse and other Details: Vazquez-Waylon Female Reproductive History Menstrual Age of Menarche: 11 control method: permanent sterilization (Pt also take bith control pills) History History 3 Para 2 Hx # Term Pregnancies Multiple births Hx # Pregnancies Ectopic pregnancies AB induced Hx Number of Living Children AB spontaneous 1
[2018-11-21] MEDS: Milk of Magnesia 30 ML CUP PO (13:28)
[2018-11-21 13:30] VITALS: BP 116/72; PULSE 87; RESP 20; TEMP 37
--- NOTE | 2018-11-21 16:35 | ROE_ITS ---
DATE OF PROCEDURE: November 20, 2018 PREOPERATIVE DIAGNOSIS: Chronic pelvic pain, dysmenorrhea, and dyspareunia. POSTOPERATIVE DIAGNOSIS: Chronic pelvic pain, dysmenorrhea, dyspareunia, and liver mass. PROCEDURE: Diagnostic laparoscopy, lysis of adhesions, and liver biopsy. SURGEON: Kimberley Torrez M.D. FRAUD PREVENTION ANALYST: Katt Jimenez P.A.-C. INTRAOPERATIVE CONSULT: Fatoumata Chi D.O., General Surgery ANESTHESIA: General. COMPLICATIONS: None. ESTIMATED BLOOD LOSS: <50 cc FLUIDS: Per Anesthesia records. FINDINGS: Bilateral pelvic sidewall adhesions. No evidence of endometriosis. Normal uterus and ovary. Prior bilateral tubal ligation noted. There was an approximately 2 x 3 cm mass on the liver close to the gallbladder. It was irregularly shaped and vascular. PROCEDURE: The patient was taken to the Operating Room where she was properly identified. She was then placed on the operating table in a dorsal supine position and general anesthesia was induced without difficulty. The patient was then placed in the dorsal lithotomy position and prepped and draped in a normal sterile fashion. A formal time-out procedure was then performed confirming patient and procedure. An infraumbilical injection of 0.25% Marcaine was placed infraumbilically. A 5- mm subcuticular incision was made. A Veress needle was advanced into the intraperitoneal cavity without difficulty. The intraperitoneal location was confirmed with a fluid-filled syringe and the drop in pressure. The abdomen was then insufflated with CO2 gas, the Veress needle removed, and a 5-mm port advanced under direct visualization. The patient was then placed in Trendelenburg position and two lower lateral ports were placed by first injecting with quarter-strength Marcaine bilaterally, making 5-mm subcuticular incisions, and advancing both ports under direct visualization. Inspection of the pelvis revealed normal anterior and posterior cul-de-sac, normal uterus, normal left ovary, absent right ovary, bilaterally previously ligated fallopian tubes, and normal appendix. Upon inspection of the liver, there was an approximately 2 x 3 cm liver mass. Attention was then turned to the pelvic sidewall adhesions which were taken down in both sharp and blunt dissection. An intraoperative consult was then requested from General Surgery. Dr. Chi from General Surgery came and scrubbed in. Several true cut core biopsies were taken of the liver mass. The small puncture in the gallbladder then was closed with four clips. The pelvis and upper abdomen were copiously irrigated. The irrigant was then removed. A right upper 10-mm port was placed in order to perform the irrigation. The lower pelvis was also copiously irrigated and the irrigant removed. Hemostasis of the liver was confirmed. All of the ports were removed and the skin was closed with #4-0 Monocryl in a subcuticular fashion. Sponge, lap, needle, and instrument counts were correct x2. The patient was taken to the Recovery Room in stable condition. She was admitted overnight for observation. cc: General Surgery
--- NOTE | 2018-11-21 17:54 | ROE_ITS ---
DATE OF PROCEDURE: November 20, 2018 PREOPERATIVE DIAGNOSIS: Abnormal liver lesion. POSTOPERATIVE DIAGNOSIS: Abnormal liver lesion. PROCEDURE: Liver biopsy. SURGEON: Fatoumata Chi D.O. ANESTHESIA: General. ESTIMATED BLOOD LOSS: 5 cc COMPLICATIONS: The patient tolerated the procedure well without complications. HISTORY: Ms. Elliott is a 33-year-old female I was asked to see by Dr. Torrez intraoperatively, regarding an abnormal liver lesion. She was undergoing a laparoscopy for chronic pelvic pain and possible endometriosis. During the course of the procedure she was discovered to have an abnormal liver lesion in segment IV, adjacent to the gallbladder, within the right lobe. Survey of the abdomen showed the stomach to be grossly normal. The gallbladder appeared grossly normal. It did not extend into the gallbladder or the hepatoduodenal ligament. Bile duct could not be seen. The small bowel and colon that were visualized appeared normal. The liver otherwise appeared normal. There was no peritoneal studding and there was no fluid in the pelvis. Ovaries appeared normal. She maybe had a few leiomyomas but, for the most part the uterus appeared normal as well. PROCEDURE: Because of the irregularity of the lesion and concern for carcinoma, TruCut core needle biopsy was done. Five passes were made with the needle. Cautery was used to provide hemostasis. There was an inadvertent puncture to the gallbladder and this was closed with three Endoclips. There was still a slight amount of ooze from the liver so a piece of Surgicel was placed over the top. There was no bleeding or bile leakage at the time of closure. Closure was carried out by Dr. Torrez. Thank you for allowing me to participate in the care of this patient. cc: Kimberley Torrez M.D.
== END 2018-11-21 14:30 | disposition home or self-care (01) ==
LOC: OBS 20:51
PROVIDERS: Surgery; Admitting Provider Obstetrics & Gynecology; PCP Physician Assistant Medical; Visit Provider Obstetrics & Gynecology
PROC: 0DNW4ZZ Release Peritoneum, Percutaneous Endoscopic Approach (ICD-10-PCS; CPT 49320; principal; 2018-11-20 10:30)
DX: R10.2 Pelvic and perineal pain (principal); N94.10 Unspecified dyspareunia; N94.6 Dysmenorrhea, unspecified; K76.9 Liver disease, unspecified; R55 Syncope and collapse; Z80.9 Family history of malignant neoplasm, unspecified
CPT/HCPCS: 58660; 47000; 36415; 80076; 85027; 86850; 86900; 86901; 99231; 99238; 99253; NC; 85014; 85018; 88307; J1100; J1885; J2250; J2405